=== PATIENT | female | born 1975 | race Caucasian/White ===

== ENCOUNTER 2021-01-11 10:27 | Emergency (ER) | payer MEDICAID ==
[~2021-01-11] VITALS: Ht 154.9 cm; Wt 81.0 kg
[2021-01-11 10:29] VITALS: BP 138/88
[2021-01-11] MEDS ORDERED: SULF1TAB48 MT (10:52)
== END 2021-01-11 11:13 | disposition home or self-care (01) ==
LOC: ER 10:27
DX: N61.1 Abscess of the breast and nipple (principal)
CPT/HCPCS: 99283